=== PATIENT | male | born 1960 | race Caucasian/White ===

== ENCOUNTER 2020-06-29 09:04 | Emergency (ER) | payer OTHER, MEDICAID ==
[2020-06-29] MEDS ORDERED: METF-649 PO (09:29)
[2020-06-29] MEDS ORDERED: LISI-170 PO (09:29)
[2020-06-29] MEDS ORDERED: KETOROLAC 30 MG/1 ML IM ONE (09:30)
[2020-06-29] MEDS ORDERED: TAMS-11 PO (09:30)
[2020-06-29] MEDS ORDERED: GLIP10TA13 PO (09:30)
[2020-06-29] MEDS ORDERED: FLUT1BLS3 IH (09:31)
[2020-06-29] MEDS ORDERED: DULA0.75 SQ-INSULIN (09:32)
[2020-06-29] MEDS ORDERED: NPH,100V5 SQ-INSULIN (09:32)
[2020-06-29] MEDS ORDERED: KETOROLAC 30 MG/1 ML ONE (09:35)
--- NOTE | 2020-06-29 09:42 | NUR ---
PT MEDICATED WITH TORADOL.
[2020-06-29 10:09] LABS: MEAN CORPUSCULAR HEMOGLOBIN 32.2 pg (27.5-34.5); MEAN CORPUSCULAR HGB CONC 33.9 g/dL (33.2-36.2); PLATELET COUNT 132 x10^3/uL (130-400); RED BLOOD COUNT 4.28 x10^6/uL (4.38-5.82); RED CELL DISTRIBUTION WIDTH 15.6 % (9.4-14.8)
[2020-06-29 10:11] LABS: ALBUMIN 3.5 g/dL (3.4-5.0); ANION GAP 6 mmol/L (5-15); CALCIUM 9.4 mg/dL (8.5-10.1); CHLORIDE 114 mmol/L (98-107)
[2020-06-29 10:15] LABS: ALANINE AMINOTRANSFERASE 62 U/L (12-78); ALKALINE PHOSPHATASE 93 U/L (45-117); BILIRUBIN,TOTAL 1.1 mg/dL (0.2-1.0); TOTAL PROTEIN 6.8 g/dL (6.4-8.2)
[2020-06-29 10:33] LABS: BASOPHILS # (AUTO) 0.04 x10^3/uL (0-0.1); BASOPHILS % (AUTO) 1 % (0-1); EOSINOPHILS # (AUTO) 0.23 x10^3/uL (0-0.4); EOSINOPHILS % (AUTO) 4 % (1-7); LYMPHOCYTES # (AUTO) 1.14 x10^3/uL (1-3.4); LYMPHOCYTES % (AUTO) 18 % (22-44); MD SCAN; MONOCYTES % (AUTO) 10 % (2-9); NEUTROPHILS # (AUTO) 4.23 x10^3/uL (1.8-6.8); NEUTROPHILS % (AUTO) 68 % (42-75)
--- NOTE | 2020-06-29 10:45 | NUR ---
REPORT FROM JUDY CORLEY. PT RESTING IN BED, STATES DOZING INTERMITANTLY. PT DENIES ANY SI, STATES HE JUST WANTS TO GET "A GOOD NIGHTS REST." PT VSS. CONT TO MONITOR.
--- NOTE | 2020-06-29 11:48 | NUR ---
PT OK FOR D/C PER ERMD. PT VERBALIZED UNDERSTANDING OF D/C INSTRUCTIONS.
[2020-06-29 11:49] VITALS: BP 137/78
== END 2020-06-29 11:51 | disposition home or self-care (01) ==
LOC: ED 10:18
DX: F23 Brief psychotic disorder (principal); G47.00 Insomnia, unspecified; G89.29 Other chronic pain; I10 Essential (primary) hypertension; E11.9 Type 2 diabetes mellitus without complications
CPT/HCPCS: 36415; 80053; 85025; 96372; 99284; J1885